=== PATIENT | female | born 1950 | race Caucasian/White ===

== ENCOUNTER 2016-09-14 12:12 | Emergency (ER) | payer BC ==
[~2016-09-14] VITALS: Ht 157.5 cm; Wt 78.7 kg
[2016-09-14] MEDS ORDERED: FENOFIBRATE160 M1 PO (14:16)
[2016-09-14 15:50] VITALS: BP 141/69
== END 2016-09-14 15:51 | disposition home or self-care (01) ==
LOC: EME 12:12 → EXP 14:04
DX: M79.661 Pain in right lower leg (principal)
CPT/HCPCS: 93971; 99281; 99284